=== PATIENT | male | born 1995 | race Two or more races ===

== ENCOUNTER 2017-04-02 18:53 | Emergency (ER) | payer OTHER ==
[~2017-04-02] VITALS: Ht 180.3 cm; Wt 76.2 kg
[2017-04-02 18:54] VITALS: BP 155/93
[2017-04-02] MEDS ORDERED: OXYC1TAB23 PO (19:00)
[2017-04-02] MEDS ORDERED: methylPREDNISolone INJ 125 MG/2 ML VIAL (J2930) IM ONE (19:30)
[2017-04-02] MEDS ORDERED: PRED20TA PO (19:43)
[2017-04-02] MEDS ORDERED: PERC5TAB6 PO (19:43)
== END 2017-04-02 19:54 | disposition home or self-care (01) ==
LOC: M ED 19:45
DX: L30.9 Dermatitis, unspecified (principal)
CPT/HCPCS: 96372; 99281; J2930

== ENCOUNTER → 2017-05-07 | Outpatient (REF) | payer OTHER ==
[~2017-05-07] MED LIST: BACT800T5 PO; CLEO300C2 PO; DOXY-278 PO; DOXY100T; NORCOTAB PO; OXYC1TAB23 PO; PERC5TAB12 PO; PRED20TA PO
[2017-05-07 11:04] LABS: BASO % 0.7 % (0.0-1.0); EOS # 0.5 K/mm3 (0.0-0.50); LARGE UNSTAINED CELL # 0.2 K/mm3 (0.0-0.4); LARGE UNSTAINED CELL % 2.8 % (0.0-4.0); LYMPH # 1.6 K/mm3 (1.5-6.5); LYMPH % 22.9 % (24.0-44.0); MEAN CORPUSCULAR HEMOGLOBIN 33.3 pg (27.0-33.0); MEAN CORPUSCULAR HGB CONC 34.6 g/dl (32.0-36.5); MEAN CORPUSCULAR VOLUME 96.1 fl (80.0-96.0); MONO # 0.5 K/mm3 (0.0-0.8); MONO % 7.6 % (0.0-5.0); NEUTROPHILS # 4.2 K/mm3 (1.8-7.7); PLATELET COUNT, AUTOMATED 298 k/mm3 (150-450); RED CELL DISTRIBUTION WIDTH 12.2 % (11.5-14.5)
[2017-05-07 11:21] LABS: ALBUMIN 4.2 GM/DL (3.2-5.2); ALBUMIN/GLOBULIN RATIO 1.35 (1.00-1.93); ALKALINE PHOSPHATASE 77 U/L (45-117); ALT/SGPT 42 U/L (12-78); ANION GAP 4 MEQ/L (8-16); AST/SGOT 25 U/L (15-37); BILIRUBIN,TOTAL 0.3 MG/DL (0.2-1.0); BLOOD UREA NITROGEN 17 MG/DL (7-18); CALCIUM LEVEL 9.5 MG/DL (8.5-10.1); CARBON DIOXIDE LEVEL 32 MEQ/L (21-32); CHLORIDE LEVEL 105 MEQ/L (98-107); CREATININE FOR GFR 0.96 MG/DL (0.70-1.30); GLOMERULAR FILTRATION RATE > 60.0 (>60); GLUCOSE, FASTING 81 MG/DL (70-105); IMMUNOGLOBULIN G 1020 MG/DL (681-1648); IMMUNOGLOBULIN M 78.8 MG/DL (40-230); POTASSIUM SERUM 4.5 MEQ/L (3.5-5.1); SODIUM LEVEL 141 MEQ/L (136-145); TOTAL PROTEIN 7.3 GM/DL (6.4-8.2)
== END ==
LOC: M SFHCPLAZ 08:45
PROVIDERS: ATTEND Internal Medicine Infectious Disease
DX: A49.02 Methicillin resistant Staphylococcus aureus infection, unspecified site (principal)

== ENCOUNTER 2017-05-21 21:56 | Emergency (ER) | payer OTHER ==
[~2017-05-21] VITALS: Ht 180.3 cm; Wt 76.2 kg
[~2017-05-21 21:56] MED LIST changes: -BACT800T5 PO; -CLEO300C2 PO; -DOXY-278 PO; -DOXY100T; -NORCOTAB PO
[2017-05-21 21:57] VITALS: BP 147/100
[2017-05-21] MEDS ORDERED: DOXY100T (22:10)
[2017-05-21] MEDS ORDERED: PERC5TAB12 PO (22:26)
[2017-05-21] MEDS ORDERED: BACT800T5 PO (22:26)
[2017-05-21] MEDS ORDERED: PERCOCET 5MG/325MG TAB PO ONE (22:30)
[2017-05-21] MEDS ORDERED: BACTRIM 160MG/800MG DS TAB PO ONE (22:30)
== END 2017-05-21 22:45 | disposition home or self-care (01) ==
LOC: M ED 22:18
DX: L03.314 Cellulitis of groin (principal); Z86.14 Personal history of Methicillin resistant Staphylococcus aureus infection

== ENCOUNTER 2017-07-04 09:26 | Emergency (ER) | payer OTHER ==
[~2017-07-04] VITALS: Ht 180.3 cm; Wt 75.0 kg
[2017-07-04 09:26] VITALS: BP 168/89
[~2017-07-04 09:26] MED LIST changes: +BACT800T5 PO; +DOXY100T
[2017-07-04] MEDS ORDERED: NORCOTAB PO (09:58)
[2017-07-04] MEDS ORDERED: CLEO300C2 PO (09:58)
[2017-07-04] MEDS ORDERED: CLINDAMYCIN 150 MG CAP PO ONE (10:00)
== END 2017-07-04 10:08 | disposition home or self-care (01) ==
LOC: M ED 09:26 → EEVIPCON 09:26 → M ED 10:08
DX: A49.02 Methicillin resistant Staphylococcus aureus infection, unspecified site (principal); L02.11 Cutaneous abscess of neck

== ENCOUNTER 2017-08-21 15:00 | Emergency (ER) | payer OTHER ==
[~2017-08-21] VITALS: Ht 180.3 cm; Wt 170.0 kg
[~2017-08-21 15:00] MED LIST changes: +CLEO300C2 PO; +NORCOTAB PO
[2017-08-21 15:01] VITALS: BP 157/99
[2017-08-21] MEDS ORDERED: DOXY-278 PO (15:12)
== END 2017-08-21 15:33 | disposition home or self-care (01) ==
LOC: M ED 15:00
DX: A49.02 Methicillin resistant Staphylococcus aureus infection, unspecified site (principal); L02.219 Cutaneous abscess of trunk, unspecified; L02.11 Cutaneous abscess of neck

== ENCOUNTER 2018-02-21 15:26 | Emergency (ER) | payer OTHER ==
[2018-02-21] MEDS: NS 1,000 ML IV (15:45)
[2018-02-21] MEDS: NALOXONE INJ 0.4 MG/1 ML VIAL (J2310) IV (16:23)
[2018-02-21 16:25] LABS: BASO # 0.1 10^3/uL (0.0-0.2); BASO % 0.4 % (0.0-1.0); EOS # 0.4 10^3/uL (0.0-0.50); EOS % 2.6 % (0.0-3.0); HEMATOCRIT 40.2 % (42.0-52.0); HEMOGLOBIN 13.9 g/dl (14.0-18.0); IMMATURE GRANULOCYTE % 0.2 % (0-3.0); LYMPH # 0.5 10^3/uL (1.5-6.5); LYMPH % 3.3 % (24.0-44.0); MEAN CORPUSCULAR HEMOGLOBIN 32.4 pg (27.0-33.0); MEAN CORPUSCULAR HGB CONC 34.6 g/dl (32.0-36.5); MEAN CORPUSCULAR VOLUME 93.7 fl (80.0-96.0); NEUTROPHILS # 14.3 10^3/uL (1.8-7.7); NEUTROPHILS % 87.5 % (36.0-66.0); PLATELET COUNT, AUTOMATED 271 10^3/uL (150-450); RED BLOOD COUNT 4.29 10^6/uL (4.30-6.10); RED CELL DISTRIBUTION WIDTH 11.8 % (11.5-14.5); WHITE BLOOD COUNT 16.3 10^3/uL (4.0-10.0)
[2018-02-21 16:36] LABS: INR 0.88
[2018-02-21 16:49] LABS: ALBUMIN/GLOBULIN RATIO 1.11 (1.00-1.93); ALKALINE PHOSPHATASE 136 U/L (45-117); ALT/SGPT 175 U/L (12-78); ANION GAP 3 MEQ/L (8-16); AST/SGOT 328 U/L (7-37); BILIRUBIN,DIRECT 0.3 MG/DL (0.0-0.2); BILIRUBIN,TOTAL 0.6 MG/DL (0.2-1.0); BLOOD UREA NITROGEN 18 MG/DL (7-18); CALCIUM LEVEL 8.3 MG/DL (8.5-10.1); CARBON DIOXIDE LEVEL 32 MEQ/L (21-32); CHLORIDE LEVEL 104 MEQ/L (98-107); CK-MB VALUE MASS 1.6 NG/ML (<3.6); CPK CREATINE PHOSPHOKINASE 179 U/L (39-308); CREATININE FOR GFR 1.27 MG/DL (0.70-1.30); GLOMERULAR FILTRATION RATE > 60.0 (>60); GLUCOSE, FASTING 112 MG/DL (70-100); MB/CK RELATIVE INDEX 0.89 (< OR =4); POTASSIUM SERUM 4.4 MEQ/L (3.5-5.1); SODIUM LEVEL 139 MEQ/L (136-145); TOTAL PROTEIN 7.6 GM/DL (6.4-8.2); TROPONIN I < 0.02 NG/ML (< 0.10)
[2018-02-21 16:55] LABS: ETHYL ALCOHOL (ETHANOL) < 0.003 % (0.000-0.010)
[2018-02-21 17:52] LABS: AMYLASE 45 U/L (25-115); LIPASE 181 U/L (73-393)
[2018-02-21 18:21] LABS: AMPHETAMINES LEVEL URINE NEGATIVE (NEGATIVE); BARBITURATES URINE NEGATIVE (NEGATIVE); BENZODIAZEPINES URINE NEGATIVE (NEGATIVE); CANNABINOIDS URINE NEGATIVE (NEGATIVE); COCAINE METABOLITE URINE POSITIVE (NEGATIVE); METHADONE URINE NEGATIVE (NEGATIVE); OPIATES URINE POSITIVE (NEGATIVE); PHENCYCLIDINE URINE NEGATIVE (NEGATIVE)
[2018-02-23 10:18] LABS: HEPATITIS B SURFACE ANTIGEN NEGATIVE (NEGATIVE)
[2018-02-23 10:46] LABS: HEPATITIS C VIRUS ABY INDEX 0.1 INDEX (<0.8)
[2018-02-23 10:46] LABS: HEPATITIS B CORE ANTIBODY IGM NEGATIVE (NEGATIVE)
[2018-02-23 10:48] LABS: HEPATITIS A ANTIBODY IGM NEGATIVE (NEGATIVE)
== END 2018-02-21 19:46 | disposition home or self-care (01) ==
LOC: M ED 15:26
DX: F14.180 Cocaine abuse with cocaine-induced anxiety disorder (principal); K75.9 Inflammatory liver disease, unspecified; F10.10 Alcohol abuse, uncomplicated; R00.0 Tachycardia, unspecified; R07.9 Chest pain, unspecified; Z88.2 Allergy status to sulfonamides; Z91.010 Allergy to peanuts
CPT/HCPCS: J2310

== ENCOUNTER 2018-05-24 17:04 | Emergency (ER) | payer OTHER ==
[2018-05-24] MEDS: LIDOCAINE 2% MDV 20 ML VIAL SC (18:00)
== END 2018-05-24 19:56 | disposition home or self-care (01) ==
LOC: M ED 17:04
DX: L60.0 Ingrowing nail (principal); Z88.2 Allergy status to sulfonamides; Z91.010 Allergy to peanuts
CPT/HCPCS: 11765